=== PATIENT | male | born 1970 | race Caucasian/White ===

== ENCOUNTER → 2016-11-29 | Outpatient (CLI) | payer MEDICARE | END | disposition disaster alternative care site (69) | LOC: GRAD 15:40 | DX: J18.9 Pneumonia, unspecified organism (principal); J94.2 Hemothorax; J98.11 Atelectasis; R59.0 Localized enlarged lymph nodes; R91.8 Other nonspecific abnormal finding of lung field ==

== ENCOUNTER → 2016-12-03 | Outpatient (CLI) | payer MEDICARE ==
--- NOTE | ~2016-12-03 | PUL ---
PATIENT'S NAME: HANNAH CUEVAS [facility] AGE: 46 Y [address] ROOM: [place] [id number] LOCATION: [facility] ADMIT DATE: 12/03/2016 Pulmonary DISCHARGE DATE: FAMILY PHYSICIAN: Brayan Astudillo MD ATTENDING PHYSICIAN: TAMIKA HINTON NAME OF PROCEDURE: Pulmonary Function Test DATE OF PROCEDURE: December 03, 2016 TECH: Charis Gallegos RRT REASON FOR EXAM: COPD RESULTS: 1. Spirometry FVC was 2.91 liters which is 53% of predicted and low, FEV1 was 2.17 liters which is 50% of predicted and low, and FEV1/FVC was 75% and normal. The flow volume curve did not reveal any significant airflow limitation. After bronchodilator administration FVC increased to 3.26 liters, which is a 12% increase, and FEV1 increased to 2.34 liters which is an 8% increase. FEV1/FVC was 72%. 2. DLCO was 17.3 with an adjusted DLCO of 20.1 which is 60% of predicted and low. 3. Total lung capacity was 4.38 liters which is 60% of predicted and low, and residual volume was 1.3 liters which is 57% of predicted and low. PHYSICIAN INTERPRETATION: The patient has no airflow limitation but has a positive bronchodilator response. His diffusion capacity is mildly low. There is evidence of moderately severe restrictive lung disease. MD LIZZY CLEMENT/fernando /[id number] dtt: 12/04/16 1526 , TAMIKA HINTON dtd: 12/04/16 1035
== END | disposition disaster alternative care site (69) ==
LOC: GRTH 12:40
DX: J44.9 Chronic obstructive pulmonary disease, unspecified (principal); J98.4 Other disorders of lung

== ENCOUNTER → 2017-01-01 | Outpatient (CLI) | payer MEDICARE ==
--- NOTE | ~2017-01-01 | NDGEN ---
PATIENT'S NAME: HANNAH CUEVAS [facility] AGE: 46 Y [address] ROOM: [place] [id number] LOCATION: [facility] ADMIT DATE: 01/01/2017 Neurodiagnostics DISCHARGE DATE: FAMILY PHYSICIAN: Brayan Astudillo MD ATTENDING PHYSICIAN: Brayan Astudillo PROCEDURE: ELECTROENCEPHALOGRAM DATE OF PROCEDURE: 01/01/2017 TIME: 10:25 a.m. INDICATIONS: This 46-year-old male patient has a history of seizures, but electively has gone off seizure medications. This EEG is done to get a baseline reading and to look for any evidence of abnormal background rhythm or epileptiform features. FINDINGS: This was a standard 21-lead EEG which was performed with photic stimulation, and the patient remained alert and awake during the study. Mostly, had his eyes open during the study. The general background rhythm showed a normal 10 to 11 Hz alpha rhythm with normal amplitudes of 30 to 60 microvolts. At no time was there any epileptiform features seen, and no seizures were recorded. The normal background rhythm was a normal sinusoidal rhythm consistent with a healthy, young brain. IMPRESSION: The general background rhythm was normal. There was no evidence of any epileptiform features seen, and no seizures were recorded. Normal EEG. MD MAKAYLA PARDO/bowenl /[id number] dtt: 01/21/17 1622 , LUCIUS SZYMANSKI dtd: 01/01/17 1619
== END | disposition disaster alternative care site (69) ==
LOC: GNEU 09:44
DX: R56.9 Unspecified convulsions (principal)